=== PATIENT | female | born 1980 | race African-American/Black ===

== ENCOUNTER 2022-03-30 03:43 | Emergency (ER) | payer OTHER ==
[2022-03-30 03:54] VITALS: BMI 31.3
[2022-03-30 04:42] LABS: VENOUS BASE EXCESS -0.6 mmol/L (-2-2); VENOUS O2 SATURATION 61.2 % (70-80); VENOUS PCO2 46.1 mmHg (38-52); VENOUS PH 7.356 (7.310-7.410)
[2022-03-30 04:52] LABS: BASO % 0.5 % (0-2.0); EOS % 2.6 % (0-4.5); HEMATOCRIT 37.5 % (32.4-45.2); HEMOGLOBIN 12.5 GM/dL (10.7-15.3); LYMPH % 35.5 % (8-40); MCH 29.7 pg (25.7-33.7); MCHC 33.2 g/dl (32.0-36.0); MEAN CELL VOLUME 89.3 fl (80-96); MEAN PLT VOLUME 9.2 fl (7.5-11.1); MONO % 10.4 % (3.8-10.2); PLATELET COUNT 203 10^3/uL (134-434)
[2022-03-30 04:57] LABS: INR 1.01 (0.83-1.09); PROTHROMBIN TIME (PATIENT) 11.6 SEC (9.7-13.0)
[2022-03-30 05:00] LABS: ACTIVATED PTT 26.6 SECONDS (25.2-36.5)
[2022-03-30 05:07] LABS: CHLORIDE 108 mmol/L (98-107); SODIUM 142 mmol/L (136-145)
[2022-03-30 05:09] LABS: ALBUMIN 3.8 g/dl (3.4-5.0); ANION GAP 9 MMOL/L (8-16); BLOOD UREA NITROGEN 14.1 mg/dL (7-18); CALCIUM 8.7 mg/dL (8.5-10.1); CO2 25 mmol/L (21-32); GLUCOSE,RANDOM 106 mg/dL (74-106)
[2022-03-30 05:12] LABS: CREATININE 0.9 mg/dL (0.55-1.3)
[2022-03-30 05:14] LABS: BILIRUBIN,TOTAL 0.4 mg/dL (0.2-1); TOT PROT 6.9 g/dl (6.4-8.2)
[2022-03-30 05:15] LABS: ALK PHOS 63 U/L (45-117)
[2022-03-30 05:22] LABS: SGOT/AST 17 U/L (15-37); SGPT/ALT 26 U/L (13-61)
[2022-03-30] MEDS ORDERED: ACETAMINOPHEN 325 MG TABLET (FP) PO ONE (06:57)
[2022-03-30] MEDS ORDERED: ACETAMINOPHEN 325 MG TABLET (FP) ONE (07:01)
[2022-03-30 08:32] VITALS: BP 114/66; PULSE 79
== END 2022-03-30 08:40 | disposition home or self-care (01) ==
LOC: JER 03:43
DX: R06.02 Shortness of breath (principal)
CPT/HCPCS: 0241U-QW; 36415; 71046-TC-FY; 71275-TC; 80053; 82803; 82962; 84484; 84703; 85025; 85379; 85610; 85730; 93005; 93010; 99285-25; Q9967

== ENCOUNTER 2022-10-02 11:04 | Observation (INO) | payer OTHER ==
[2022-10-02] MEDS ORDERED: diazePAM CARPU-JECT 10 MG/2 ML DISP.SYRIN IVPUSH ONE ×2 (12:23→13:35)
[2022-10-02] MEDS ORDERED: morphine CARPU-JECT 4 MG/1 ML DISP.SYRIN IVPUSH ONE (12:23)
[2022-10-02] MEDS ORDERED: ONDANSETRON 4 MG/2 ML VIAL IVPUSH ONE (12:24)
[2022-10-02] MEDS ORDERED: morphine SULFATE 4 MG/ML VIAL ONE (12:50)
[2022-10-02] MEDS ORDERED: ONDANSETRON 4 MG/2 ML VIAL ONE (12:50)
[2022-10-02] MEDS ORDERED: diazePAM CARPU-JECT 10 MG/2 ML DISP.SYRIN ONE ×2 (12:52→13:39)
[2022-10-02 13:06] LABS: BASO % 0.8 % (0-2.0); EOS % 1.3 % (0-4.5); HEMATOCRIT 37.5 % (32.4-45.2); HEMOGLOBIN 12.1 GM/dL (10.7-15.3); MCH 25.2 pg (25.7-33.7); MCHC 32.3 g/dl (32.0-36.0); MEAN CELL VOLUME 78.1 fl (80-96); MEAN PLT VOLUME 9.1 fl (7.5-11.1); MONO % 8.1 % (3.8-10.2); NEUT % 59.8 % (42.8-82.8); PLATELET COUNT 242 10^3/uL (134-434); RDW 15.8 % (11.6-15.6); WHITE BLOOD COUNT 6.5 K/mm3 (4.0-10.0)
[2022-10-02 13:17] LABS: PH,URINE 6.5 (5.0-8.0); URINE APPEARANCE CLEAR; URINE BILIRUBIN NEGATIVE (NEGATIVE); URINE COLOR YELLOW; URINE GLUCOSE (UA) NEGATIVE (NEGATIVE); URINE KETONE NEGATIVE (NEGATIVE); URINE LEUK ESTERASE NEGATIVE (NEGATIVE); URINE NITRITE NEGATIVE (NEGATIVE); URINE PROTEIN NEGATIVE (NEGATIVE); URINE UROBILINOGEN 0.2 mg/dL (0.2-1.0)
[2022-10-02 13:21] LABS: CHLORIDE 105 mmol/L (98-107); SODIUM 140 mmol/L (136-145)
[2022-10-02 13:23] LABS: ALBUMIN 4.2 g/dl (3.4-5.0); ANION GAP 9 MMOL/L (8-16); BLOOD UREA NITROGEN 12.5 mg/dL (7-18); CALCIUM 9.3 mg/dL (8.5-10.1); CO2 25 mmol/L (21-32); GLUCOSE,RANDOM 90 mg/dL (74-106)
[2022-10-02 13:26] LABS: CREATININE 0.9 mg/dL (0.55-1.3); SGOT/AST 17 U/L (15-37); SGPT/ALT 21 U/L (13-61)
[2022-10-02 13:29] LABS: ALK PHOS 78 U/L (45-117); BILIRUBIN,TOTAL 0.5 mg/dL (0.2-1); TOT PROT 8.2 g/dl (6.4-8.2)
[2022-10-02 13:47] LABS: ERYTHROCYTE SEDIMENTATION RATE 11 mm/hr (0-20)
[2022-10-02] MEDS ORDERED: FLUORESCEIN NA 1 EA STRIP OS ONE (13:49)
[2022-10-02] MEDS ORDERED: ACETAMINOPHEN 1000 MG/100 ML BAG IVPB ONE (19:23)
[2022-10-02] MEDS ORDERED: ACETAMINOPHEN INJECTION 100 ML IVPB ONE (19:30)
[2022-10-03 00:30] VITALS: RESP 18; BMI 30.7
[2022-10-03] MEDS ORDERED: ACETAMINOPHEN 1000 MG/100 ML BAG IVPB ONE (06:50)
[2022-10-03] MEDS: busPIRone HCL 10 MG TABLET (FP) PO SCH ×2 (06:50→14:13)
[2022-10-03 08:46] LABS: BASO % 0.6 % (0-2.0); EOS % 3.1 % (0-4.5); HEMATOCRIT 34.1 % (32.4-45.2); HEMOGLOBIN 11.1 GM/dL (10.7-15.3); LYMPH % 40.2 % (8-40); MCH 25.2 pg (25.7-33.7); MCHC 32.4 g/dl (32.0-36.0); MEAN CELL VOLUME 77.8 fl (80-96); MEAN PLT VOLUME 9.2 fl (7.5-11.1); MONO % 8.5 % (3.8-10.2); NEUT % 47.6 % (42.8-82.8); PLATELET COUNT 238 10^3/uL (134-434); RBC 4.39 M/mm3 (3.60-5.2); RDW 15.4 % (11.6-15.6); WHITE BLOOD COUNT 5.3 K/mm3 (4.0-10.0)
[2022-10-03 09:05] LABS: CHLORIDE 105 mmol/L (98-107); SODIUM 139 mmol/L (136-145)
[2022-10-03 09:07] LABS: ALBUMIN 3.6 g/dl (3.4-5.0); CALCIUM 8.7 mg/dL (8.5-10.1)
[2022-10-03 09:08] LABS: ANION GAP 8 MMOL/L (8-16); CO2 26 mmol/L (21-32); GLUCOSE,RANDOM 100 mg/dL (74-106)
[2022-10-03 09:10] LABS: SGOT/AST 12 U/L (15-37); SGPT/ALT 19 U/L (13-61)
[2022-10-03 09:11] LABS: PHOSPHOROUS 4.3 mg/dL (2.5-4.9)
[2022-10-03 09:12] LABS: BILIRUBIN,TOTAL 0.8 mg/dL (0.2-1); TOT PROT 7.2 g/dl (6.4-8.2)
[2022-10-03 09:13] LABS: ALK PHOS 64 U/L (45-117)
[2022-10-03] MEDS ORDERED: ENOXAPARIN NA (PORCINE) 40 MG/0.4 ML DISP.SYRIN SQ SCH (10:00)
[2022-10-03] MEDS ORDERED: PARoxetine HCL 20 MG TABLET PO SCH (10:00)
[2022-10-03] MEDS ORDERED: ACETAMINOPHEN 500 MG TABLET (FP) PO SCH (11:45)
[2022-10-03 11:57] LABS: HIV INTERPRETATION NEGATIVE (NEGATIVE)
[2022-10-03 15:20] VITALS: BP 103/57; PULSE 86; TEMP 98.7
== END 2022-10-03 16:40 | disposition home or self-care (01) ==
LOC: JER 11:04 → UNDOADMOB 18:02 → INTOOBSV 18:02 → JERBED 18:02 → J8W 22:47
PROVIDERS: ADMIT Internal Medicine; ATTEND Nurse Practitioner Acute Care
PROC: 3E033NZ Introduction of Analgesics, Hypnotics, Sedatives into Peripheral Vein, Percutaneous Approach (ICD-10-PCS; principal; 2022-10-03)
PROC: 3E033GC Introduction of Other Therapeutic Substance into Peripheral Vein, Percutaneous Approach (ICD-10-PCS; 2022-10-03)
DX: M54.50 Low back pain, unspecified (principal); F41.0 Panic disorder [episodic paroxysmal anxiety]; M32.9 Systemic lupus erythematosus, unspecified; Z29.8 Encounter for other specified prophylactic measures; E66.01 Morbid (severe) obesity due to excess calories; Z68.30 Body mass index [BMI] 30.0-30.9, adult; M10.9 Gout, unspecified
CPT/HCPCS: 0241U-QW; 36415; 72158-TC; 80053; 81003; 82550; 82553; 83735; 84100; 85025; 85651; 86038; 86140; 86200; 86431; 86780; 87086; 87389; 93005; 93010; 96372; 96374; 96375; 97116-GP; 97161-GP; 99285-25; A9579; G0378